=== PATIENT | female | born 1960 | race Caucasian/White ===

== ENCOUNTER 2017-10-31 10:53 | Inpatient (IN) | payer BC ==
[2017-10-31] VITALS (36 sets, daily range): BP systolic 86–136; BP diastolic 50–78; PULSE 64–102; RESP 14–19; Ht 154.9 cm; Wt 63.8 kg
[~2017-10-31] VITALS: Ht 154.9 cm; Wt 63.8 kg
[~2017-10-31 10:53] MED LIST: EPHEDrine SULFATE 50 MG/5 ML SYG ONE
[2017-10-31] MEDS ORDERED: THROMBIN 5000 UNIT VIAL ONE (13:25)
[2017-10-31] MEDS ORDERED: PROPOFOL 20 ML ONE (14:34)
[2017-10-31] MEDS ORDERED: GLYCOPYRROLATE 0.4 MG INJ ONE ×2 (14:34→16:08)
[2017-10-31] MEDS ORDERED: SUCCINYLCHOLINE CHLORIDE 100 MG/5 ML SYG IV ONE (14:34)
[2017-10-31] MEDS ORDERED: LIDOCAINE 2% (SDV) 5 ML INJ ONE (14:34)
[2017-10-31] MEDS ORDERED: morphine SULFATE/PF (10 MG/10 ML) INJ ONE (14:34)
[2017-10-31] MEDS ORDERED: ROCURONIUM 50 MG INJ ONE ×2 (14:34→16:08)
[2017-10-31] MEDS ORDERED: NEOSTIGMINE 3 MG/3 ML SYRINGE ONE (14:34)
[2017-10-31] MEDS ORDERED: METOCLOPRAMIDE 10 MG INJ ONE (14:35)
[2017-10-31] MEDS ORDERED: CEFAZOLIN 1 GM INJ ONE (14:35)
[2017-10-31] MEDS ORDERED: ONDANSETRON 4 MG INJ ONE (14:35)
[2017-10-31] MEDS ORDERED: metroNIDAZOLE 500 MG/NS (PMX) 100 ML IVPB ONE (14:35)
[2017-10-31] MEDS ORDERED: THROMBIN 5000 UNIT VIAL TOP ONE (16:14)
[2017-10-31] MEDS ORDERED: METHYLENE BLUE 1% 10 ML INJ ONE (16:35)
[2017-10-31] MEDS ORDERED: DIPHENHYDRAMINE 50 MG INJ IV PRN (17:00)
[2017-10-31] MEDS ORDERED: NALOXONE (0.4 MG/ML) INJ IV PRN (17:00)
[2017-10-31] MEDS ORDERED: HYDROmorphONE 0.5 MG/0.5 ML SYG IV PRN ×2 (17:00)
[2017-10-31] MEDS ORDERED: ONDANSETRON 4 MG INJ IV PRN (17:00)
--- NOTE | 2017-10-31 18:07 | HPN ---
Date/Time of Note Date/Time of Note DATE: 10/31/17 TIME: 18:06 Interval H&P Admission Note Pt. seen H&P reviewed: No system changes ARSENIO PARKER MD Oct 31, 2017 18:07
--- NOTE | 2017-10-31 18:09 | SIPON ---
Date/Time of Note Date/Time of Note DATE: 10/31/17 TIME: 18:07 Operative Report Preoperative Diagnosis possible endometrial cancer Postoperative Diagnosis path pending Operation/Procedure Performed TLH/BSO UDx2 Surgeon see signature line ssn/ssbn assistant navigator Dr. Koo Anesthesia: epidural Estimated blood loss: 50 - 100 ml's Transfusion Required none Specimen uterus and adnexa and nodes as above Grafts/Implants none Complications none ARSENIO PARKER MD Oct 31, 2017 18:09
[2017-10-31] MEDS ORDERED: CEFAZOLIN 1 GM in SOD CHLORIDE 0.9% 100 ML IVPB SCH (18:30)
[2017-10-31] MEDS ORDERED: morphine 2 MG INJ IV PRN (18:30)
[2017-10-31] MEDS ORDERED: HYDROmorphONE (0.2 MG/ML) 10ML SYG IV ONE (18:49)
[2017-10-31] MEDS ORDERED: HYDROmorphONE 0.5 MG/0.5 ML SYG IV STA (18:52)
[2017-10-31] MEDS: metroNIDAZOLE 500 MG/NS (PMX) 100 ML IVPB SCH (20:12)
[2017-10-31] MEDS: FAMOTIDINE 20 MG INJ IV SCH (20:12)
[2017-10-31] MEDS: POTASSIUM CHLORIDE 20 MEQ in LACTATED RINGER'S 1,000 ML IV SCH (21:21)
[2017-10-31] MEDS: CEFAZOLIN 1 GM/50 ML (PMX) 50 ML IVPB SCH (21:21)
[2017-10-31] MEDS ORDERED: CEFAZOLIN 1 GM/50 ML (PMX) 50 ML IVPB SCH (22:00)
[2017-11-01] VITALS (8 sets, daily range): BP systolic 85–116; BP diastolic 51–62; PULSE 84; RESP 18–20
[2017-11-01] MEDS: metroNIDAZOLE 500 MG/NS (PMX) 100 ML IVPB SCH ×2 (01:56→10:57)
[2017-11-01] MEDS: CEFAZOLIN 1 GM/50 ML (PMX) 50 ML IVPB SCH ×2 (04:46→14:19)
[2017-11-01] MEDS: POTASSIUM CHLORIDE 20 MEQ in LACTATED RINGER'S 1,000 ML IV SCH ×4 (04:46→19:59)
[2017-11-01 05:24] LABS: BASOPHILS % 0.2 % (0.0-2.0); HEMATOCRIT 31.3 % (37.0-47.0); HEMOGLOBIN 10.7 g/dl (12.0-16.0); LYMPHOCYTES # 1.2 10^3/ul (0.8-2.9); MEAN CORPUSCULAR HEMOGLOBIN 31.1 pg (29.0-33.0); MEAN CORPUSCULAR HGB CONC 34.2 g/dl (32.0-37.0); MEAN PLATELET VOLUME 11.7 fl (7.4-10.4); MONOCYTE # 0.9 10^3/ul (0.3-0.9); MONOCYTES % 8.9 % (0.0-11.0); NEUTROPHIL # 7.9 10^3/ul (1.6-7.5); NEUTROPHILS % 78.5 % (39.0-77.0); PLATELET COUNT 183 10^3/UL (140-415); RED BLOOD COUNT 3.44 10^6/ul (4.20-5.40); RED CELL DISTRIBUTION WIDTH 12.2 % (11.5-14.5)
[2017-11-01] MEDS ORDERED: SOD CHLORIDE 0.9% 500 ML IV ONE (05:30)
[2017-11-01 05:48] LABS: CALCIUM 8.6 mg/dl (8.4-10.2); CREATININE 0.63 mg/dl (0.44-1.00); POTASSIUM 4.1 mmol/L (3.5-5.1)
[2017-11-01] MEDS: FAMOTIDINE 20 MG INJ IV SCH ×2 (09:09→22:34)
[2017-11-01] MEDS: HYDROCODONE/APAP (5/325) TAB PO PRN ×3 (09:16→22:41)
[2017-11-01] MEDS ORDERED: METH5TAB75 PO (12:36)
[2017-11-01] MEDS ORDERED: LORA0.5T PO ×2 (12:36→16:33)
[2017-11-01] MEDS ORDERED: PROP10TA6 PO (12:36)
[2017-11-01] MEDS ORDERED: morphine 2 MG INJ IV PRN (13:00)
--- NOTE | 2017-11-01 13:04 | HP ---
DATE OF ADMISSION: 10/31/2017 HISTORY OF PRESENT ILLNESS: The patient is a 57-year-old Yi female with past medical history positive for anxiety, hyperthyroidism, arthritis, and Parkinson disease. The patient was experienci ng ongoing pelvic discomfort. The patient is postmenopausal. The patient was evaluated by Dr. Sai lord for complex endometrial hyperplasia. The patient was brought to the hospital and underwent lap aroscopic hysterectomy with bilateral salpingo-oophorectomy and ureteral dissection. the harshil ent experienced moderate pain and the patient is admitted for further evaluation and management. PAST MEDICAL HISTORY: Per HPI. PAST SURGICAL HISTORY: Patient denies having any surgeries in the past. FAMILY HISTORY: The patient has a sister with endometrial hyperplasia. SOCIAL HISTORY: Patient lives at home with the family. The patient denies any tobacco use, denies any alcohol use, denies any illicit drug use. ALLERGIES: NO KNOWN ALLERGIES. HOME MEDICATIONS: Include: 1. Propranolol. 2. Tapazole. 3. Ativan. REVIEW OF SYSTEMS: A 12-point review of systems negative unless what mentioned in the HPI. PHYSICAL ASSESSMENT: GENERAL: Well-developed, well-nourished female in no acute distress. VITAL SIGNS: Temperature is 98.9, pulse is 84, blood pressure 96/62, respiratory rate 19, oxygen sa turation 98% on 2 liters nasal cannula. HEENT: Head is atraumatic, normocephalic. Pupils equal, round, reactive to light and accommodation . Oral mucosa is pink and moist. NECK: Supple, no cervical lymphadenopathy, no thyromegaly. CHEST: Lungs clear bilaterally. There is no rhonchi, wheezes, rales noted. CARDIOVASCULAR: Normal S1, S2. No murmurs, gallops noted. ABDOMEN: Round, soft. Status post laparoscopic surgery. Bowel sounds active in all 4 quadrants. EXTREMITIES: No edema, clubbing, cyanosis. GENITOURINARY: The patient has a Mcgrath catheter with clear yellow urine. SKIN: There is no rash, petechiae noted. NEUROLOGIC: The patient is awake, alert and oriented x4. No focal deficits noted. Motor strength 5/5 in all extremities. LABORATORY DATA: On admission, CBC: White blood cells 10.0, hemoglobin 10.7, hematocrit 31.3, plat elets 183. Chemistry: Sodium is 139, potassium 4.1, chloride 102, carbon dioxide 30, anion gap 11, BUN is 7, creatinine 0.63, glucose 87, calcium 8.6. ASSESSMENT AND PLAN: 1. Endometrial hyperplasia with atypia with ongoing pelvic discomfort and possible endometrial canc er. Status post total laparoscopic hysterectomy and bilateral salpingo-oophorectomy by Dr. Blanchard on 10/31/2017. 2. Continue postoperative antibiotics. 3. Continue IV fluids. 4. Advance diet per surgery. 5. Continue [place] and morphine for pain and Zofran p.r.n. for nausea. 6. Continue sequential compression device for deep venous thrombosis prophylaxis. Further recommendations based on clinical course. Plan of care discussed with Dr. Chavis. Dictated By: SETH MELO PATIENT SCHEDULER for FRANK CHAVIS MD SR/NTS Conf#: [id number] DID#: [id number]
[2017-11-01] MEDS ORDERED: [UNRECOGNIZED DRUG - CODE] MC (16:33)
[2017-11-01] MEDS ORDERED: DOCU100T PO (16:33)
[2017-11-01] MEDS ORDERED: TRAM50TA2 PO (16:33)
[2017-11-01] MEDS ORDERED: FOLI-49 PO (16:33)
[2017-11-01] MEDS ORDERED: GABA300S PO (16:33)
[2017-11-01] MEDS ORDERED: MELO7.5O PO (16:33)
[2017-11-01] MEDS ORDERED: METR250T19 PO (16:33)
[2017-11-01] MEDS ORDERED: HYDR-3498 PO (16:33)
[2017-11-01] MEDS ORDERED: LEVO500S PO (16:33)
[2017-11-01] MEDS ORDERED: OXYB10TA PO (16:33)
[2017-11-01] MEDS ORDERED: CARB1TAB34 PO (16:33)
[2017-11-01] MEDS ORDERED: RANI300T PO (16:33)
[2017-11-01] MEDS ORDERED: [UNRECOGNIZED DRUG - CODE] PO (16:33)
[2017-11-01] MEDS ORDERED: ASPI-535 PO (16:33)
[2017-11-02 00:02] VITALS: BP 131/61; RESP 20
[2017-11-02 00:22] VITALS: BP 132/60; RESP 20
[2017-11-02 05:52] LABS: BASOPHILS % 0.4 % (0.0-2.0); EOSINOPHILS % 0.2 % (0.0-7.0); HEMATOCRIT 30.9 % (37.0-47.0); HEMOGLOBIN 10.4 g/dl (12.0-16.0); LYMPHOCYTES # 1.1 10^3/ul (0.8-2.9); LYMPHOCYTES % 12.9 % (15.0-51.0); MEAN CORPUSCULAR HEMOGLOBIN 30.5 pg (29.0-33.0); MEAN CORPUSCULAR HGB CONC 33.7 g/dl (32.0-37.0); MEAN CORPUSCULAR VOLUME 90.6 fl (82.0-101.0); MEAN PLATELET VOLUME 11.8 fl (7.4-10.4); MONOCYTE # 0.8 10^3/ul (0.3-0.9); MONOCYTES % 9.7 % (0.0-11.0); NEUTROPHIL # 6.5 10^3/ul (1.6-7.5); NEUTROPHILS % 76.3 % (39.0-77.0); PLATELET COUNT 165 10^3/UL (140-415); RED BLOOD COUNT 3.41 10^6/ul (4.20-5.40); RED CELL DISTRIBUTION WIDTH 11.9 % (11.5-14.5); WHITE BLOOD COUNT 8.6 10^3/ul (4.8-10.8)
[2017-11-02 06:18] LABS: CALCIUM 8.4 mg/dl (8.4-10.2); CREATININE 0.49 mg/dl (0.44-1.00); POTASSIUM 3.6 mmol/L (3.5-5.1)
[2017-11-02] MEDS: POTASSIUM CHLORIDE 20 MEQ in LACTATED RINGER'S 1,000 ML IV SCH (06:39)
[2017-11-02 08:01] VITALS: BP 128/60; RESP 18
[2017-11-02] MEDS: FAMOTIDINE 20 MG INJ IV SCH ×2 (08:28→20:41)
[2017-11-02] MEDS: HYDROCODONE/APAP (5/325) TAB PO PRN (08:33)
[2017-11-02] MEDS ORDERED: LORAZEPAM 0.5 MG TAB PO PRN (11:30)
[2017-11-02] MEDS: HYDROCODONE/APAP (10/325) TAB PO PRN ×2 (16:09→22:51)
--- NOTE | 2017-11-02 18:13 | PN ---
Date/Time of Note Date/Time of Note DATE: 11/02/17 TIME: 18:11 Assessment/Plan VTE Prophylaxis VTE Prophylaxis Intervention: other Lines/Catheters IV Catheter Type (from Nrs): Peripheral IV Urinary Cath still in place: Yes Assessment/Plan Assessment/Plan 1. Endometrial hyperplasia with atypia with ongoing pelvic discomfort and possible endometrial cancer. Status post total laparoscopic hysterectomy and bilateral salpingo- oophorectomy by Dr. Blanchard on 10/31/2017. 2. Continue postoperative antibiotics. 3. Continue IV fluids. 4. Advance diet per surgery. 5. Continue [place] and morphine for pain and Zofran p.r.n. for nausea. 6. Continue sequential compression device for deep venous thrombosis prophylaxis. Further recommendations based on clinical course. Plan of care discussed with Dr. Adame. Subjective 24 Hr Interval Summary Free Text/Dictation c/o pain, pain med was adjusted per staff. afebrile. no new issues reported last night. dw staff Constitutional: requiring IVF Respiratory: no complaints Cardiovascular: no complaints Gastrointestinal: pain Genitourinary: no complaints Musculoskeletal: no complaints Exam/Review of Systems Vital Signs Vitals Vital Signs Date Time Temp Pulse Resp B/P Pulse Ox O2 Delivery O2 Flow Rate FiO2 11/02/17 08:01 97.8 72 18 128/60 11/02/17 00:22 96 11/01/17 05:01 Nasal Cannula 2.0 Intake and Output 11/01/17 11/01/17 11/02/17 15:00 23:00 07:00 Intake Total 150 ml 1900 ml 1460 ml Output Total 1400 ml 2200 ml Balance 150 ml 500 ml -740 ml Exam Constitutional: alert Respiratory: clear to auscultation, diminished breath sounds Cardiovascular: nl pulses Gastrointestinal: soft, tender Musculoskeletal: nl extremities to inspection Extremities: normal pulses, other Results Result Diagram: 11/02/17 0448 11/02/17 0448 Results 24 hrs Laboratory Tests Test 11/02/17 04:48 White Blood Count 8.6 Red Blood Count 3.41 L Hemoglobin 10.4 L Hematocrit 30.9 L Mean Corpuscular Volume 90.6 Mean Corpuscular Hemoglobin 30.5 Mean Corpuscular Hemoglobin Concent 33.7 Red Cell Distribution Width 11.9 Platelet Count 165 Mean Platelet Volume 11.8 H Neutrophils % 76.3 Lymphocytes % 12.9 L Monocytes % 9.7 Eosinophils % 0.2 Basophils % 0.4 Nucleated Red Blood Cells % 0.0 Neutrophils # 6.5 Lymphocytes # 1.1 Monocytes # 0.8 Eosinophils # 0.0 Basophils # 0.0 Nucleated Red Blood Cells # 0.0 Sodium Level 139 Potassium Level 3.6 Chloride Level 105 Carbon Dioxide Level 29 Anion Gap 9 Blood Urea Nitrogen 4 L Creatinine 0.49 Glucose Level 107 Calcium Level 8.4 Medications Medications Current Medications Famotidine 20 mg 20 mg Q12 IV Last administered on 11/02/17 08:28; Admin Dose 20 MG; Start 10/31/17 at 21:00 Potassium Chloride/Lactated Ringer's (KCl/Lr) 1,010 ml @ 40 mls/hr Q24H IV Last administered on 11/02/17 06:39; Admin Dose 100 MLS/HR; Start 10/31/17 at 18:09 Morphine Sulfate (morphine) 1 mg Q2H PRN IV PAIN LEVEL 6-10 Last administered on 11/02/17 11:00; Admin Dose 1 MG; Start 11/01/17 at 13:00 Acetaminophen/ Hydrocodone Bitart ([place] (10/325)) 1 tab Q4H PRN PO PAIN Last administered on 11/02/17 16:09; Admin Dose 1 TAB; Start 11/02/17 at 11:30 Lorazepam (Ativan) 0.5 mg Q6H PRN PO ANXIETY Last administered on 11/02/17 12: 27; Admin Dose 0.5 MG; Start 11/02/17 at 11:30 Simethicone (Mylicon) 80 mg TID PRN PO DISTENSION/GAS/BLOATING; Start 11/02/17 at 14:30 MARCELINO VILLEGAS Nov 02, 2017 18:13
[2017-11-02 20:20] VITALS: BP 139/69; RESP 20
[2017-11-03 03:16] VITALS: BP 122/72; RESP 20
[2017-11-03] MEDS: POTASSIUM CHLORIDE 20 MEQ in LACTATED RINGER'S 1,000 ML IV SCH (05:07)
[2017-11-03 06:17] LABS: BASOPHILS % 0.4 % (0.0-2.0); EOSINOPHILS # 0.1 10^3/ul (0.0-0.5); EOSINOPHILS % 0.9 % (0.0-7.0); HEMATOCRIT 30.6 % (37.0-47.0); HEMOGLOBIN 10.4 g/dl (12.0-16.0); LYMPHOCYTES # 1.7 10^3/ul (0.8-2.9); LYMPHOCYTES % 21.9 % (15.0-51.0); MEAN CORPUSCULAR VOLUME 91.3 fl (82.0-101.0); MEAN PLATELET VOLUME 11.6 fl (7.4-10.4); MONOCYTE # 0.7 10^3/ul (0.3-0.9); MONOCYTES % 8.8 % (0.0-11.0); NEUTROPHIL # 5.3 10^3/ul (1.6-7.5); NEUTROPHILS % 67.6 % (39.0-77.0); PLATELET COUNT 169 10^3/UL (140-415); RED BLOOD COUNT 3.35 10^6/ul (4.20-5.40); RED CELL DISTRIBUTION WIDTH 11.9 % (11.5-14.5); WHITE BLOOD COUNT 7.8 10^3/ul (4.8-10.8)
[2017-11-03 06:44] LABS: CALCIUM 8.3 mg/dl (8.4-10.2); CREATININE 0.49 mg/dl (0.44-1.00); POTASSIUM 3.9 mmol/L (3.5-5.1)
[2017-11-03 08:09] VITALS: BP 131/76; PULSE 76; RESP 14
[2017-11-03] MEDS: FAMOTIDINE 20 MG INJ IV SCH (08:32)
[2017-11-03 09:26] LABS: ADD UMIC YES; UR ASCORBIC ACID NEGATIVE (NEGATIVE); UR BACTERIA FEW /HPF (NONE SEEN); UR BILIRUBIN (Dip) NEGATIVE (NEGATIVE); UR BLOOD (Dip) 2+ mg/dL (NEGATIVE); UR CLARITY CLEAR (CLEAR); UR COLOR YELLOW (YELLOW); UR GLUCOSE (Dip) NEGATIVE (NEGATIVE); UR KETONES (Dip) 1+ mg/dL (NEGATIVE); UR LEUKOCYTE ESTERASE (Dip) NEGATIVE Leu/ul (NEGATIVE); UR NITRITE (Dip) NEGATIVE (NEGATIVE); UR RBC 1 /HPF (0-5); UR SPECIFIC GRAVITY (Dip) 1.009 (1.003-1.030); UR TOTAL PROTEIN (Dip) NEGATIVE (NEGATIVE); UR UROBILINOGEN (Dip) NEGATIVE (NEGATIVE)
[2017-11-03] MEDS: HYDROCODONE/APAP (10/325) TAB PO PRN (10:07)
[2017-11-03] MEDS ORDERED: KETOROLAC 30 MG INJ IV PRN (13:00)
[2017-11-03] MEDS ORDERED: HYDROCODONE/APAP (10/325) TAB PO PRN (16:00)
--- NOTE | 2017-11-03 18:21 | PN ---
Date/Time of Note Date/Time of Note DATE: 11/03/17 TIME: 18:19 Assessment/Plan VTE Prophylaxis VTE Prophylaxis Intervention: SCD's Lines/Catheters [facility] Peripheral IV Urinary Cath still in place: No Assessment/Plan Chief Complaint/Hosp Course Patient still complains of moderate to severe pain, able to void had bowel movement. Patient denies any nausea vomiting. Anticipate discharge home tomorrow if pain is well controlled Problems: Assessment/Plan - Endometrial hyperplasia with atypia with ongoing pelvic discomfort and possible endometrial cancer. Status post total laparoscopic hysterectomy and bilateral salpingo-oophorectomy by Dr. Blanchard on 10/31/2017. Further recommendations based on clinical course. Plan of care discussed with Dr. Adame. Exam/Review of Systems Vital Signs Vitals Vital Signs Date Time Temp Pulse Resp B/P Pulse Ox O2 Delivery O2 Flow Rate FiO2 11/03/17 08:09 98.0 76 14 131/76 98 11/01/17 05:01 Nasal Cannula 2.0 Intake and Output 11/02/17 11/02/17 11/03/17 15:00 23:00 07:00 Intake Total 1800 ml 690 ml Output Total 2600 ml Balance -800 ml 690 ml Exam Constitutional: alert, oriented Head: normocephalic Neck: supple Respiratory: normal air movement Cardiovascular: nl pulses Gastrointestinal: other (Status post surgery with laparoscopic surgical incisions intact), soft Musculoskeletal: nl extremities to inspection Extremities: normal pulses Results Result Diagram: 11/03/17 0451 11/03/17 0451 Results 24 hrs Laboratory Tests Test 11/03/17 04:51 11/03/17 07:40 White Blood Count 7.8 Red Blood Count 3.35 L Hemoglobin 10.4 L Hematocrit 30.6 L Mean Corpuscular Volume 91.3 Mean Corpuscular Hemoglobin 31.0 Mean Corpuscular Hemoglobin Concent 34.0 Red Cell Distribution Width 11.9 Platelet Count 169 Mean Platelet Volume 11.6 H Neutrophils % 67.6 Lymphocytes % 21.9 Monocytes % 8.8 Eosinophils % 0.9 Basophils % 0.4 Nucleated Red Blood Cells % 0.0 Neutrophils # 5.3 Lymphocytes # 1.7 Monocytes # 0.7 Eosinophils # 0.1 Basophils # 0.0 Nucleated Red Blood Cells # 0.0 Sodium Level 141 Potassium Level 3.9 Chloride Level 106 Carbon Dioxide Level 28 Anion Gap 11 Blood Urea Nitrogen 4 L Creatinine 0.49 Glucose Level 98 Calcium Level 8.3 L Urine Color YELLOW Urine Clarity CLEAR Urine pH 8.0 Urine Specific [place] 1.009 Urine Ketones 1+ H Urine Nitrite NEGATIVE Urine Bilirubin NEGATIVE Urine Urobilinogen NEGATIVE Urine Leukocyte Esterase NEGATIVE Urine Microscopic RBC 1 Urine Microscopic WBC 3 Urine Bacteria FEW A Urine Hemoglobin 2+ H Urine Glucose NEGATIVE Urine Total Protein NEGATIVE Medications Medications Current Medications Potassium Chloride/Lactated Ringer's (KCl/Lr) 1,010 ml @ 40 mls/hr Q24H IV Last administered on 11/03/17 05:07; Admin Dose 40 MLS/HR; Start 10/31/17 at 18 :09 Lorazepam (Ativan) 0.5 mg Q6H PRN PO ANXIETY Last administered on 11/02/17 12: 27; Admin Dose 0.5 MG; Start 11/02/17 at 11:30 Simethicone (Mylicon) 80 mg TID PRN PO DISTENSION/GAS/BLOATING Last administered on 11/03/17 08:32; Admin Dose 80 MG; Start 11/02/17 at 14:30 Acetaminophen/ Hydrocodone Bitart ([place] (10/325)) 1 tab Q6H PRN PO PAIN; Start 11/03/17 at 16:00 Ketorolac Tromethamine (Toradol) 30 mg Q6H PRN IV PAIN Last administered on 13:51; Admin Dose 30 MG; Start 11/03/17 at 13:00; Stop 11/06/17 at 12:59 Famotidine (Pepcid) 20 mg BID PO ; Start 11/03/17 at 21:00 SETH MELO Nov 03, 2017 18:21
[2017-11-03] MEDS: FAMOTIDINE 20 MG TAB PO SCH (20:40)
[2017-11-03] MEDS ORDERED: ZOLPIDEM 5 MG TAB PO PRN (21:00)
[2017-11-03 21:13] VITALS: BP 118/60; RESP 18
--- NOTE | 2017-11-03 23:02 | PN ---
Date/Time of Note Date/Time of Note DATE: 11/03/17 TIME: 22:59 Assessment/Plan VTE Prophylaxis VTE Prophylaxis Intervention: SCD's Lines/Catheters IV Catheter Type (from Nrs): Peripheral IV Urinary Cath still in place: No Assessment/Plan Assessment/Plan A- improved P- movilixe, less meds and possibly home a.m. Subjective 24 Hr Interval Summary Free Text/Dictation minimally oob, flatus but / explained repeatedly why no BM Exam/Review of Systems Vital Signs Vitals Vital Signs Date Time Temp Pulse Resp B/P Pulse Ox O2 Delivery O2 Flow Rate FiO2 11/03/17 21:13 98.3 78 18 118/60 96 11/01/17 05:01 Nasal Cannula 2.0 Intake and Output 11/02/17 11/02/17 11/03/17 15:00 23:00 07:00 Intake Total 1800 ml 690 ml Output Total 2600 ml Balance -800 ml 690 ml Exam Resp- clear Ad- sl dist Ext- NT Results Result Diagram: 11/03/17 0451 11/03/17 0451 Results 24 hrs Laboratory Tests Test 11/03/17 04:51 11/03/17 07:40 White Blood Count 7.8 Red Blood Count 3.35 L Hemoglobin 10.4 L Hematocrit 30.6 L Mean Corpuscular Volume 91.3 Mean Corpuscular Hemoglobin 31.0 Mean Corpuscular Hemoglobin Concent 34.0 Red Cell Distribution Width 11.9 Platelet Count 169 Mean Platelet Volume 11.6 H Neutrophils % 67.6 Lymphocytes % 21.9 Monocytes % 8.8 Eosinophils % 0.9 Basophils % 0.4 Nucleated Red Blood Cells % 0.0 Neutrophils # 5.3 Lymphocytes # 1.7 Monocytes # 0.7 Eosinophils # 0.1 Basophils # 0.0 Nucleated Red Blood Cells # 0.0 Sodium Level 141 Potassium Level 3.9 Chloride Level 106 Carbon Dioxide Level 28 Anion Gap 11 Blood Urea Nitrogen 4 L Creatinine 0.49 Glucose Level 98 Calcium Level 8.3 L Urine Color YELLOW Urine Clarity CLEAR Urine pH 8.0 Urine Specific [place] 1.009 Urine Ketones 1+ H Urine Nitrite NEGATIVE Urine Bilirubin NEGATIVE Urine Urobilinogen NEGATIVE Urine Leukocyte Esterase NEGATIVE Urine Microscopic RBC 1 Urine Microscopic WBC 3 Urine Bacteria FEW A Urine Hemoglobin 2+ H Urine Glucose NEGATIVE Urine Total Protein NEGATIVE Medications Medications Current Medications Potassium Chloride/Lactated Ringer's (KCl/Lr) 1,010 ml @ 40 mls/hr Q24H IV Last administered on 11/03/17 05:07; Admin Dose 40 MLS/HR; Start 10/31/17 at 18 :09 Lorazepam (Ativan) 0.5 mg Q6H PRN PO ANXIETY Last administered on 11/02/17 12: 27; Admin Dose 0.5 MG; Start 11/02/17 at 11:30 Simethicone (Mylicon) 80 mg TID PRN PO DISTENSION/GAS/BLOATING Last administered on 11/03/17 08:32; Admin Dose 80 MG; Start 11/02/17 at 14:30 Acetaminophen/ Hydrocodone Bitart ([place] (10325)) 1 tab Q6H PRN PO PAIN; Start 11/03/17 at 16:00 Ketorolac Tromethamine (Toradol) 30 mg Q6H PRN IV PAIN Last administered on 13:51; Admin Dose 30 MG; Start 11/03/17 at 13:00; Stop 11/06/17 at 12:59 Famotidine (Pepcid) 20 mg BID PO Last administered on 11/03/17 20:40; Admin Dose 20 MG; Start 11/03/17 at 21:00 Zolpidem Tartrate (Ambien) 5 mg HS PRN PO INSOMNIA Last administered on 22:55; Admin Dose 5 MG; Start 11/03/17 at 21:00 ARSENIO PARKER MD Nov 03, 2017 23:02
[2017-11-04 02:00] VITALS: BP 118/70; PULSE 75; RESP 18
[2017-11-04 07:38] VITALS: BP 115/74; RESP 18
[2017-11-04] MEDS: FAMOTIDINE 20 MG TAB PO SCH (08:43)
[2017-11-04] MEDS: POTASSIUM CHLORIDE 20 MEQ in LACTATED RINGER'S 1,000 ML IV SCH (10:33)
--- NOTE | 2017-11-04 11:34 | PN ---
Date/Time of Note Date/Time of Note DATE: 11/04/17 TIME: 11:33 Assessment/Plan VTE Prophylaxis VTE Prophylaxis Intervention: other Lines/Catheters [facility] [place] Urinary Cath still in place: No Assessment/Plan Chief Complaint/Hosp Course - Endometrial hyperplasia with atypia with ongoing pelvic discomfort and possible endometrial cancer. Status post total laparoscopic hysterectomy and bilateral salpingo-oophorectomy by Dr. Blanchard on 10/31/2017. Problems: Subjective 24 Hr Interval Summary Free Text/Dictation Patient has some pain Exam/Review of Systems Vital Signs Vitals Vital Signs Date Time Temp Pulse Resp B/P Pulse Ox O2 Delivery O2 Flow Rate FiO2 11/04/17 07:38 99.6 88 18 115/74 96 11/01/17 05:01 Nasal Cannula 2.0 Intake and Output 11/03/17 11/03/17 11/04/17 14:59 22:59 06:59 Intake Total 1520 ml 960 ml Output Total 800 ml 900 ml Balance 720 ml 60 ml Exam Constitutional: well developed Head: atraumatic, normocephalic Neck: supple Respiratory: clear to auscultation Cardiovascular: regular rate and rhythm Gastrointestinal: non-tender, soft Extremities: normal pulses Results Result Diagram: 11/03/1745011/03/17 045 Medications Medications Current Medications Potassium Chloride/Lactated Ringer's (KCl/Lr) 1,010 ml @ 40 mls/hr Q24H IV Last administered on 11/03/17 05:07; Admin Dose 40 MLS/HR; Start 10/31/17 at 18 :09 Lorazepam (Ativan) 0.5 mg Q6H PRN PO ANXIETY Last administered on 11/02/17 12: 27; Admin Dose 0.5 MG; Start 11/02/17 at 11:30 Simethicone (Mylicon) 80 mg TID PRN PO DISTENSION/GAS/BLOATING Last administered on 11/03/17 08:32; Admin Dose 80 MG; Start 11/02/17 at 14:30 Acetaminophen/ Hydrocodone Bitart ([place] (10/325)) 1 tab Q6H PRN PO PAIN Last administered on 11/04/17 10:45; Admin Dose 1 TAB; Start 11/03/17 at 16:00 Ketorolac Tromethamine (Toradol) 30 mg Q6H PRN IV PAIN Last administered on 13:51; Admin Dose 30 MG; Start 11/03/17 at 13:00; Stop 11/06/17 at 12:59 Famotidine (Pepcid) 20 mg BID PO Last administered on 11/04/17 08:43; Admin Dose 20 MG; Start 11/03/17 at 21:00 Zolpidem Tartrate (Ambien) 5 mg HS PRN PO INSOMNIA Last administered on 22:55; Admin Dose 5 MG; Start 11/03/17 at 21:00 ARMINDA OWENS Nov 04, 2017 11:34
[2017-11-04 13:58] VITALS: BP 121/60; RESP 18
[2017-11-04] MEDS ORDERED: LEVOFLOXACIN 750 MG TABLET PO SCH (15:30)
--- NOTE | 2017-11-06 18:23 | OPR ---
Date/Time of Note Date/Time of Note DATE: 11/06/17 TIME: 17:50 Operative Report Free Text/Dictation OPERATIVE REPORT [facility] Name: Seth Stahl Date: 10/31/17 Preoperative Diagnosis: 1-Endometrial hyperplasia Postoperative Diagnosis: Endometrial cancer with final pathology pending Procedures: 1- Total laparoscopic hysterectomy with bilateral salpingoophorectomy 2- Bilateral ureteral dissection with repositioning 3- Laparoscopic pelvic and aortic lymph node sampling 4- Retroperitoneal uterine artery ligation control Postoperative Diagnosis: 1- Pathology pending 2- Ureteral stricture 3- Uterus enlargement Surgeon: Dr. Parker Sales Enablement Specialist: Dr. Koo Anaesthesia: General with regional Indications for Procedure: This 57- year old patient had a endometrial hyperplasia and after discussions of options with risks and benefits it was determined that a laparoscopic hysterectomy with bilateral salpingoophorectomy and pelvic/aortic selective lymph node sampling would be completed for the purposes of treatment and possibly planning additional therapy. The pelvic and LND was performed in lieu of possible cancer; due to uncertain FS and to provide additional information. Name: Seth Stahl Intraoperative Findings and Summary of Procedure: After placing the Trocars and exploration we noted a somewhat globular uterus with some scar and a suggestion of scar tissue with significant adhesions of the adnexia to the sidewalls. The TLH/BSO was then performed without incident but required a ureteral dissection due to anatomic issues of the adnexia adherent to the sidewalls and uterine enlargement due to some fibroids with retroperitoneal uterine artery ligation adjacent to hypogastric artery for required hemostasis, with the laparoscopic LND sampling being subsequently performed with a finding of grossly negative nodes pathology pending. The patient will stay a minimum of one night to observe for recovery of from anesthesia and confirm stable hemoglobin and hematocrit with the necessity of confirmation of some GI recovery and probably need an addition night as well. Findings and Procedure: After being prepped and draped in the usual manner an EEA sizer and pneumo- occluder was inserted vaginally. A 5-millimeter trocar was then placed periumbilically without incident. Subsequently, we insufflated and placed two 12- millimeter trocars laterally and a 12-millimeter trocar suprapubically, as well as an additional 5-mm trocar cephlad to the umbilicus. At this time multiple pelvic adhesions were lysed with sharp dissection and the Omni if not adjacent to serosa. Subsequently we explored and noted a somewhat enlarged uterus and adhesions with adnexia adherent to the sidewalls due to apparent inflammation and old scar tissue. Initially the right round ligament was cauterized and transected with the Thunderbeat and the retroperitoneal space further opened parallel to the IP ligament an laterally with the same devise. The right ureter was identified and due to the aforementioned distortion from adherent adnexia was dissected laterally with the Omni and the endo-dissector. After lateralizing the ureter the uterine artery was identified and clipped adjacent to the hypogastric artery due to the uterine enlargement and hypervascularity lateral to the ureter. Hence, a space was Name: Seth [facility] developed the broad ligament and the right IP ligament was cauterized and transected with a Thunderbeat after which the uterus was retracted medially and the bladder flap was partly developed with the Gyrus bipolar cutting forceps and the Omni. We then used a 10-mm ratcheted endo-grasper placed through the 12 -mm suprapubic trocar to manipulate the uterus and with the EEA sizer uterus was retracted and left round ligament was cauterized and transected with the Thunderbeat and the retroperitoneal space further opened parallel to the IP ligament an laterally with the same devise. The left ureter was identified and due to the aforementioned distortion was dissected laterally with the Omni and the endo-dissector as done contralaterally. After lateralizing the ureter the uterine artery was identified and with the Thunderbeat adjacent to the hypogastric artery due to the uterine enlargement and hypervascularity lateral to the ureter. Hence, a space was developed in the broad ligament and the left IP ligament was cauterized and transected with a Thunderbeat after which the uterus was retracted medially, allowing development or the bladder flap uneventfully with a Thunderbeat and blunt dissection. Subsequently, the right uterine artery was transected with a Thunderbeat perpendicular to the distal lower uterine segment and the Cardinal ligament and utero-sacral ligament were both transected with an Omni and Thunderbeat parallel to the lower uterine segment and cervix. An identical series of steps were taken on the left side. The anterior and posterior colpotomies were accomplished with a Thunderbeat anteriorly and posteriorly, and continued around the sides as the specimen was removed through the vagina uneventfully. The vagina was closed with interrupted 0 Vicryl suture and continuous 2-0 v-lock suture. Initially a fan retractor was used for exposure and secured to the Ji arm and samples of sargest lymph node tissue adjacent to the right vessels as well as obturator fossa were removed with sharp and blunt dissection, using the Gyrus bipolar cutting forceps or Omni for hemostasis and lymphostasis. The dissection was continued to include hieu tissue adjacent to the common iliac vessels and minimal vena cava. Subsequently, lymph node tissue adjacent to the left vasculature was removed, with a technique identical to the right side. The dissection was continued to include hieu tissue adjacent to the common iliac Name: Seth [facility] vessels. Subsequently, the fan retractors were adjusted and any hieu tissue adjacent to the aorta were dissected using similar technique. After irrigating and assuring hemostasis the 12 millimeter trocars were removed and the fascia was closed with 0-vicryl using an endo-close devise. The gas was removed and the skin of all sites then closed with subcutaneous 5-0 Monocryl suture suture. The EBL was 150cc and the patient tolerated the procedure well and left the OR in good condition without incident or problem. Edgar Parker M.D. Procedure Date: Nov 06, 2017 Preoperative Diagnosis as above Postoperative Diagnosis as above Operation/Procedure Performed as above Surgeon see signature line Sales Enablement Specialist as above Anesthesia Type: other Estimated Blood Loss: 100 - 150 ml's Transfusion none Specimen as above Grafts/Implants none Tubes/Drains none Complications none Indications as above Procedure Description as above EDGAR PARKER MD Nov 06, 2017 18:00
== END 2017-11-04 16:40 | disposition home or self-care (01) | DRG 741 ==
LOC: REC 10:53 → MS1 19:50
PROC: 0UT7FZZ Resection of Bilateral Fallopian Tubes, Via Natural or Artificial Opening With Percutaneous Endoscopic Assistance (ICD-10-PCS; 2017-10-31)
PROC: 0UT2FZZ Resection of Bilateral Ovaries, Via Natural or Artificial Opening With Percutaneous Endoscopic Assistance (ICD-10-PCS; 2017-10-31)
PROC: 07BD4ZX Excision of Aortic Lymphatic, Percutaneous Endoscopic Approach, Diagnostic (ICD-10-PCS; 2017-10-31)
PROC: 07BC4ZX Excision of Pelvis Lymphatic, Percutaneous Endoscopic Approach, Diagnostic (ICD-10-PCS; 2017-10-31)
PROC: 0UT9FZZ Resection of Uterus, Via Natural or Artificial Opening With Percutaneous Endoscopic Assistance (ICD-10-PCS; principal; 2017-10-31 14:00)
DX: C54.1 Malignant neoplasm of endometrium (principal); G20 Parkinson's disease; D25.1 Intramural leiomyoma of uterus; Z78.0 Asymptomatic menopausal state; N85.02 Endometrial intraepithelial neoplasia [EIN]
CPT/HCPCS: 80048; 81001; 85025; 86850; 86900; 86901; 86920; 87086; 88104; 88307; 97110; 97116; 97162; 97530; J0690; J1170; J1885; J2270; J2274; J2405; J2710; J2765; J3480; J7040; J7120

== ENCOUNTER 2017-12-22 18:17 | Emergency (ER) | END 2017-12-22 22:14 | disposition left against medical advice (07) ==

== ENCOUNTER 2018-01-11 07:40 | Emergency (ER) | END 2018-01-11 12:10 | disposition home or self-care (01) ==

== ENCOUNTER 2018-05-14 12:02 | Day surgery (SDC) | END 2018-05-14 16:31 | disposition home or self-care (01) ==